=== PATIENT | female | born 2000 | race American Indian/Alaskan Native ===

== ENCOUNTER 2020-04-14 00:46 | Emergency (ER) | payer SELFPAY ==
[2020-04-14 01:36] VITALS: BP 112/64
--- NOTE | 2020-04-14 04:19 | Emergency Department Report ---
ED ENT HPI - General Chief complaint: Sore Throat Stated complaint: SORE THORAT Time Seen by Provider: 04/14/20 04:00 Source: patient Mode of arrival: Ambulatory Limitations: No Limitations - History of Present Illness Initial comments: Patient is a 19-year-old female presents emergency room complaints of a sore throat that began a couple days ago. She has associated pain with swallowing. She is able to tolerate p.o. intake. She states that she noticed some white spots on the back of her tonsils. She denies any fever, nausea, vomiting, diarrhea. She denies any sick contacts or recent travel. She denies any past medical history. No allergies to medications. Patient states that her last menstrual cycle was March 12 and that is also why she presented to the emergency room. She states that she has had some lower abdominal cramping and back pain but denies any vaginal bleeding, discharge, urinary symptoms. - Related Data Previous Rx's Medication Instructions Recorded Last Taken Type Amoxicillin [Trimox] 500 mg PO BID 10 Days #40 capsule 04/14/20 Unknown Rx Allergies Allergy/AdvReac Type Severity Reaction Status Date / Time No Known Allergies Allergy Unverified 04/14/20 01:09 ED Dental HPI - General Chief complaint: Sore Throat Stated complaint: SORE THORAT Time Seen by Provider: 04/14/20 04:00 Source: patient Mode of arrival: Ambulatory Limitations: No Limitations - Related Data Previous Rx's Medication Instructions Recorded Last Taken Type Amoxicillin [Trimox] 500 mg PO BID 10 Days #40 capsule 04/14/20 Unknown Rx Allergies Allergy/AdvReac Type Severity Reaction Status Date / Time No Known Allergies Allergy Unverified 04/14/20 01:09 ED Review of Systems ROS: Stated complaint: SORE THORAT Other details as noted in HPI Comment: All other systems reviewed and negative ED Past Medical Hx - Past Medical History Previous Medical History?: No - Surgical History Past Surgical History?: No - Social History Smoking Status: Never Smoker Substance Use Type: None - Medications Home Medications: Home Medications Medication Instructions Recorded Confirmed Last Taken Type Amoxicillin [Trimox] 500 mg PO BID 10 Days #40 capsule 04/14/20 Unknown Rx ED Physical Exam - General Limitations: No Limitations General appearance: alert, in no apparent distress - Head Head exam: Present: atraumatic, normocephalic - Eye Eye exam: Present: normal appearance - ENT ENT exam: Present: mucous membranes moist, TM's normal bilaterally, normal external ear exam, other (bilateral tonsillar exudates with mild tonsillar hypertrophy, uvula is midline, no uvular edema or deviation, no muffled voice, tolerating secretions, no tongue elevation) - Respiratory Respiratory exam: Present: normal lung sounds bilaterally. Absent: respiratory distress, wheezes, rales, rhonchi, stridor, chest wall tenderness, accessory muscle use, decreased breath sounds, prolonged expiratory - Cardiovascular Cardiovascular Exam: Present: regular rate, normal rhythm, normal heart sounds. Absent: systolic murmur, diastolic murmur, rubs, gallop - GI/Abdominal GI/Abdominal exam: Present: soft. Absent: distended, tenderness, guarding, rebound, rigid - Neurological Exam Neurological exam: Present: alert, oriented X3 - Psychiatric Psychiatric exam: Present: normal affect, normal mood - Skin Skin exam: Present: warm, dry, intact ED Course Vital Signs 04/14/20 01:09 Temperature 98.1 F Pulse Rate 78 Respiratory 18 Rate Blood Pressure 112/64 O2 Sat by Pulse 99 Oximetry ED Medical Decision Making - Lab Data Vital Signs 04/14/20 01:09 Temperature 98.1 F Pulse Rate 78 Respiratory 18 Rate Blood Pressure 112/64 O2 Sat by Pulse 99 Oximetry Lab Results 04/14/20 Range/Units 05:12 Urine Color Yellow (Yellow) Urine Turbidity Slightly-cloudy (Clear) Urine pH 6.0 (5.0-7.0) Ur Specific [place] 1.031 H (1.003-1.030) Urine Protein 30 mg/dl (Negative) mg/dL Urine Glucose (UA) Neg (Negative) mg/dL Urine Ketones Neg (Negative) mg/dL Urine Blood Neg (Negative) Urine Nitrite Neg (Negative) Ur Reducing Substances Not Reportable Urine Bilirubin Neg (Negative) Urine Ictotest Not Reportable Urine Urobilinogen 4.0 (<2.0) mg/dL Ur Leukocyte Esterase Mod (Negative) Urine WBC (Auto) 48.0 H (0.0-6.0) /HPF Urine RBC (Auto) 21.0 (0.0-6.0) /HPF U Epithel Cells (Auto) 27.0 H (0-13.0) /HPF Urine Bacteria (Auto) 1+ (Negative) /HPF Urine Mucus 3+ /HPF Urine HCG, Qual Negative (Negative) - Medical Decision Making Patient is a 19-year-old female presents emergency room complaints of a sore throat that began a couple days ago. She has associated pain with swallowing. She is able to tolerate p.o. intake. She states that she noticed some white spots on the back of her tonsils. She denies any fever, nausea, vomiting, diarrhea. She denies any sick contacts or recent travel. She denies any past medical history. No allergies to medications. Patient states that her last menstrual cycle was March 12 and that is also why she presented to the emergency room. She states that she has had some lower abdominal cramping and back pain but denies any vaginal bleeding, discharge, urinary symptoms. vitals are normal. on exam: bilateral tonsillar exudates with mild tonsillar hypertrophy, uvula is midline, no uvular edema or deviation, no muffled voice, tolerating secretions, no tongue elevation. Examination appears consistent with tonsillitis, no signs of peritonsillar abscess at this time. Urine is negative. UA shows evidence of white blood cells and leukocyte esterase, there are many epithelial cells, could be due to contamination, but given that patient is having lower abdominal cramping and back pain could be related to UTI, urine culture sent, advised patient to follow-up with PCP for repeat urinalysis. Patient given amoxicillin which will cover for tonsillitis and UTI. advised pt Please take medication as prescribed. Increase your water intake. May take Tylenol or ibuprofen as needed for pain. May use [id number] throat spray. Do warm salt water gargles 3 times a day. Throw away your toothbrush. Do not drink after others or allow others to drink after you. Follow-up with a primary care doctor for reexamination and to have your urine retested. Return to emergency room for any new or worsening symptoms. Critical care attestation.: If time is entered above; I have spent that time in minutes in the direct care of this critically ill patient, excluding procedure time. ED Disposition Clinical Impression: Tonsillitis UTI (urinary tract infection) Qualifiers: Urinary tract infection type: acute cystitis Hematuria presence: with hematuria Qualified Code(s): N30.01 - Acute cystitis with hematuria Disposition: TO HOME OR SELFCARE Is pt being admited?: No Does the pt Need Aspirin: No Condition: Stable Instructions: Urinary Tract Infection in Women (ED), Tonsillitis (ED) Additional Instructions: Please take medication as prescribed. Increase your water intake. May take Tylenol or ibuprofen as needed for pain. May use [id number] throat spray. Do warm salt water gargles 3 times a day. Throw away your toothbrush. Do not drink after others or allow others to drink after you. Follow-up with a primary care doctor for reexamination and to have your urine retested. Return to emergency room for any new or worsening symptoms. Prescriptions: Amoxicillin [Trimox] 500 mg PO BID 10 Days #40 capsule Referrals: KELECHI FONSECA MD [Staff Physician] - 2-3 Days [facility] [Provider Group] - 2-3 Days [facility] [Outside] - 2-3 Days Time of Disposition: 06:29 Print Language: TAMAZIGHT
[2020-04-14 06:07] LABS: Mucus,Urine 3+ /HPF
[2020-04-14 06:18] LABS: Bacteria,Urine 1+ /HPF (Negative); Bilirubin,Urine NEG (Negative); Blood,Urine NEG (Negative); Color,Urine Yellow (Yellow)
[2020-04-14 06:20] LABS: HCG Qualitative,Urine Negative (Negative)
== END 2020-04-14 06:40 | disposition home or self-care (01) ==
LOC: ED 00:46
DX: J03.90 Acute tonsillitis, unspecified (principal); N39.0 Urinary tract infection, site not specified; Z79.899 Other long term (current) drug therapy
CPT/HCPCS: 81001; 81025; 87086; 99283

== ENCOUNTER 2020-04-26 15:53 | Emergency (ER) | payer SELFPAY ==
[2020-04-26 17:13] LABS: Bilirubin,Urine NEG (Negative); Blood,Urine NEG (Negative); Color,Urine Yellow (Yellow); Mucus,Urine 3+ /HPF; Protein,Urine <15 mg/dL mg/dL (Negative); Urobilinogen,Urine < 2.0 mg/dL (<2.0)
[2020-04-26 17:15] LABS: HCG Qualitative,Urine Negative (Negative)
--- NOTE | 2020-04-26 18:23 | Emergency Department Report ---
ED General Adult HPI - General Chief complaint: Abdominal Pain Stated complaint: BACK, STOMACH, CHEST PAIN Time Seen by Provider: 04/26/20 17:04 Source: patient Mode of arrival: Ambulatory Limitations: No Limitations - History of Present Illness Initial comments: 19-year-old -[place] female patient presents with complaints of continued sore throat, left upper abdominal pain, body aches, and left-sided chest pain since her visit 04/14/2020. Patient states she was seen here in the ED and treated for tonsillitis with amoxicillin. Patient states she did take all 10 days worth of the Amoxil and her symptoms seem to have improved for a couple of days and then worsened. She rates her current throat pain and abdominal pain as a 8/10 in severity. She also admits to some nausea, but denies any vomiting, diarrhea, constipation, shortness of breath, leg pain/swelling, hormone use, history of DVT/PE/cancer, or cough/hemoptysis. She also reports bilateral mid back pain and side pain. Patient noted to have UTI at last visit, however she denies any urinary symptoms or vaginal discharge - Related Data Previous Rx's Medication Instructions Recorded Last Taken Type Amoxicillin [Trimox] 500 mg PO BID 10 Days #40 capsule 04/14/20 Unknown Rx Ibuprofen [Motrin 800 MG tab] 800 mg PO Q8HR PRN #21 tablet 04/26/20 Unknown Rx Sulfamethoxazole/Trimethoprim 1 each PO BID 10 Days #20 tablet 04/26/20 Unknown Rx [Bactrim DS TAB] Allergies Allergy/AdvReac Type Severity Reaction Status Date / Time No Known Allergies Allergy Unverified 04/14/20 01:09 ED Review of Systems ROS: Stated complaint: BACK, STOMACH, CHEST PAIN Other details as noted in HPI Constitutional: denies: chills, diaphoresis, fever, malaise, weakness Respiratory: denies: cough, shortness of breath Cardiovascular: chest pain Gastrointestinal: nausea. denies: abdominal pain, diarrhea, constipation Genitourinary: denies: urgency Musculoskeletal: back pain. denies: joint swelling Skin: rash. denies: change in color Neurological: denies: headache, numbness Psychiatric: denies: depression Hematological/Lymphatic: denies: swollen glands ED Past Medical Hx - Past Medical History Previous Medical History?: No - Surgical History Past Surgical History?: No - Social History Smoking Status: Never Smoker - Medications Home Medications: Home Medications Medication Instructions Recorded Confirmed Last Taken Type Amoxicillin [Trimox] 500 mg PO BID 10 Days #40 capsule 04/14/20 Unknown Rx Ibuprofen [Motrin 800 MG tab] 800 mg PO Q8HR PRN #21 tablet 04/26/20 Unknown Rx Sulfamethoxazole/Trimethoprim 1 each PO BID 10 Days #20 tablet 04/26/20 Unknown Rx [Bactrim DS TAB] ED Physical Exam - General Limitations: No Limitations General appearance: alert, in no apparent distress - Head Head exam: Present: atraumatic, normocephalic - Eye Eye exam: Present: normal appearance - ENT ENT exam: Present: mucous membranes moist - Expanded ENT Exam Expanded Mouth exam: Absent: drooling, trismus, muffled voice Throat exam: Positive: tonsillar erythema, tonsillomegaly (Moderate bilateral), tonsillar exudate (Bilateral) - Neck Neck exam: Present: full ROM, lymphadenopathy (Mild anterior cervical and submandibular). Absent: meningismus - Respiratory Respiratory exam: Present: normal lung sounds bilaterally. Absent: respiratory distress, chest wall tenderness - Cardiovascular Cardiovascular Exam: Present: regular rate, normal rhythm. Absent: systolic murmur, diastolic murmur, rubs, gallop - GI/Abdominal GI/Abdominal exam: Present: soft, tenderness (LUQ), normal bowel sounds. Absent: distended, guarding, rebound, rigid - Extremities Exam Extremities exam: Present: normal inspection, full ROM. Absent: calf tenderness (No swelling or edema noted in extremities bilaterally) - Back Exam Back exam: Present: full ROM. Absent: CVA tenderness (R), CVA tenderness (L), paraspinal tenderness, vertebral tenderness - Neurological Exam Neurological exam: Present: alert, oriented X3 - Psychiatric Psychiatric exam: Present: normal affect, normal mood - Skin Skin exam: Present: warm, dry, intact, normal color, rash (papular rash noted bilaterally to antecubital fossas without serrounding cellulitis or drainage) ED Course Vital Signs 04/26/20 16:28 Temperature 98.3 F Pulse Rate 73 Respiratory 18 Rate Blood Pressure 116/49 [Right] O2 Sat by Pulse 100 Oximetry ED Medical Decision Making - Lab Data Result diagrams: 04/26/20 18:27 04/26/20 18:27 Lab Results 04/26/20 04/26/20 04/26/20 Range/Units 16:44 18:27 18:27 WBC 4.9 (4.5-11.0) K/mm3 RBC 4.24 (3.65-5.03) M/mm3 Hgb 12.5 (10.1-14.3) gm/dl Hct 38.2 (30.3-42.9) % MCV 90 (79-97) fl MCH 30 (28-32) pg MCHC 33 (30-34) % RDW 14.5 (13.2-15.2) % Plt Count 307 (140-440) K/mm3 Lymph % (Auto) 41.9 H (13.4-35.0) % [place] % (Auto) 10.6 H (0.0-7.3) % Eos % (Auto) 8.8 H (0.0-4.3) % Baso % (Auto) 0.8 (0.0-1.8) % Lymph # 2.1 (1.2-5.4) K/mm3 [place] # 0.5 (0.0-0.8) K/mm3 Eos # 0.4 (0.0-0.4) K/mm3 Baso # 0.0 (0.0-0.1) K/mm3 Seg Neutrophils % 37.9 L (40.0-70.0) % Seg Neutrophils # 1.9 (1.8-7.7) K/mm3 Sodium 139 (137-145) mmol/L Potassium 5.8 H (3.6-5.0) mmol/L Chloride 102.1 (98-107) mmol/L Carbon Dioxide 24 (22-30) mmol/L Anion Gap 19 mmol/L BUN 11 (7-17) mg/dL Creatinine 0.6 (0.6-1.2) mg/dL Estimated GFR > 60 ml/min BUN/Creatinine Ratio 18 % Glucose 86 (65-100) mg/dL Calcium 9.5 (8.4-10.2) mg/dL Total Bilirubin 0.20 (0.1-1.2) mg/dL AST 43 H (5-40) units/L ALT 15 (7-56) units/L Alkaline Phosphatase 59 (35-129) units/L Total Protein 7.6 (6.3-8.2) g/dL Albumin 3.8 L (3.9-5) g/dL Albumin/Globulin Ratio 1.0 % Lipase 31 (13-60) units/L Urine Color Yellow (Yellow) Urine Turbidity Slightly-cloudy (Clear) Urine pH 5.0 (5.0-7.0) Ur Specific [place] 1.029 (1.003-1.030) Urine Protein <15 mg/dl (Negative) mg/dL Urine Glucose (UA) Neg (Negative) mg/dL Urine Ketones Neg (Negative) mg/dL Urine Blood Neg (Negative) Urine Nitrite Neg (Negative) Urine Bilirubin Neg (Negative) Urine Urobilinogen < 2.0 (<2.0) mg/dL Ur Leukocyte Esterase Mod (Negative) Urine WBC (Auto) 18.0 H (0.0-6.0) /HPF Urine RBC (Auto) 7.0 (0.0-6.0) /HPF U Epithel Cells (Auto) 13.0 (0-13.0) /HPF Urine Mucus 3+ /HPF Urine HCG, Qual Negative (Negative) Monoscreen (Negative) 04/26/20 Range/Units 18:27 WBC (4.5-11.0) K/mm3 RBC (3.65-5.03) M/mm3 Hgb (10.1-14.3) gm/dl Hct (30.3-42.9) % MCV (79-97) fl MCH (28-32) pg MCHC (30-34) % RDW (13.2-15.2) % Plt Count (140-440) K/mm3 Lymph % (Auto) (13.4-35.0) % [place] % (Auto) (0.0-7.3) % Eos % (Auto) (0.0-4.3) % Baso % (Auto) (0.0-1.8) % Lymph # (1.2-5.4) K/mm3 [place] # (0.0-0.8) K/mm3 Eos # (0.0-0.4) K/mm3 Baso # (0.0-0.1) K/mm3 Seg Neutrophils % (40.0-70.0) % Seg Neutrophils # (1.8-7.7) K/mm3 Sodium (137-145) mmol/L Potassium (3.6-5.0) mmol/L Chloride (98-107) mmol/L Carbon Dioxide (22-30) mmol/L Anion Gap mmol/L BUN (7-17) mg/dL Creatinine (0.6-1.2) mg/dL Estimated GFR ml/min BUN/Creatinine Ratio % Glucose (65-100) mg/dL Calcium (8.4-10.2) mg/dL Total Bilirubin (0.1-1.2) mg/dL AST (5-40) units/L ALT (7-56) units/L Alkaline Phosphatase (35-129) units/L Total Protein (6.3-8.2) g/dL Albumin (3.9-5) g/dL Albumin/Globulin Ratio % Lipase (13-60) units/L Urine Color (Yellow) Urine Turbidity (Clear) Urine pH (5.0-7.0) Ur Specific [place] (1.003-1.030) Urine Protein (Negative) mg/dL Urine Glucose (UA) (Negative) mg/dL Urine Ketones (Negative) mg/dL Urine Blood (Negative) Urine Nitrite (Negative) Urine Bilirubin (Negative) Urine Urobilinogen (<2.0) mg/dL Ur Leukocyte Esterase (Negative) Urine WBC (Auto) (0.0-6.0) /HPF Urine RBC (Auto) (0.0-6.0) /HPF U Epithel Cells (Auto) (0-13.0) /HPF Urine Mucus /HPF Urine HCG, Qual (Negative) Monoscreen Negative (Negative) - Radiology Data Radiology results: report reviewed CHEST 2 VIEWS INDICATION: left sided chest pain, recent strep, LUQ pain. COMPARISON: None. FINDINGS: Support devices: None. Heart: Within normal limits. Lungs/Pleura: No acute air space or interstitial disease. No significant pleural effusion. IMPRESSION: No acute findings. - Medical Decision Making 19-year-old -[place] female patient presents with complaints of continued sore throat, left upper abdominal pain, body aches, and left-sided chest pain since her visit 04/14/2020. Patient states she was seen here in the ED and treated for tonsillitis with amoxicillin. Patient states she did take all 10 days worth of the Amoxil and her symptoms seem to have improved for a couple of days and then worsened. She rates her current throat pain and abdominal pain as a 8/10 in severity. She also admits to some nausea, but denies any vomiting, diarrhea, constipation, shortness of breath, leg pain/swelling, hormone use, history of DVT/PE/cancer, or cough/hemoptysis. She also reports bilateral mid back pain and side pain. Patient noted to have UTI at last visit, however she denies any urinary symptoms or vaginal discharge Given rash and pharyngitis not improved with amoxil, mono test was ordered. No spenomagly was noted on exam. Monotest is negative. CBC and lipase are normal. CMP show a potassium of 5.8 -lab states sample was hemolyzed. Pt noted to have continued UTI. POssible pyleo given radiation of pain, however no CVA tender was noted on exam. Rocephin given in ED. will d/c home on Bactrim. Recommend PCP f/u 3 in days. Strict return precautions were discussed in detail with pt who verbalizes understanding. Critical care attestation.: If time is entered above; I have spent that time in minutes in the direct care of this critically ill patient, excluding procedure time. ED Disposition Clinical Impression: Acute recurrent tonsillitis Disposition: - TO HOME OR SELFCARE Is pt being admited?: No Condition: Stable Instructions: Pharyngitis (ED), Acute Pyelonephritis (ED), Urinary Tract Infection in Women (ED) Prescriptions: Sulfamethoxazole/Trimethoprim [Bactrim DS TAB] 1 each PO BID 10 Days #20 tablet Ibuprofen [Motrin 800 MG tab] 800 mg PO Q8HR PRN #21 tablet PRN Reason: pain Referrals: PRIMARY CARE, [Primary Care Provider] - 3-5 Days
--- NOTE | 2020-04-26 18:47 | XRay Report ---
CHEST 2 VIEWS INDICATION: left sided chest pain, recent strep, LUQ pain. COMPARISON: None. FINDINGS: Support devices: None. Heart: Within normal limits. Lungs/Pleura: No acute air space or interstitial disease. No significant pleural effusion. IMPRESSION: No acute findings. Signer Name: Mc Vargas MD Signed: 04/26/2020 6:42 PM Workstation Name: [id number]
[2020-04-26 18:49] LABS: Basophils % (Auto) 0.8 % (0.0-1.8); Eosinophils # (Auto) 0.4 K/mm3 (0.0-0.4); Eosinophils % (Auto) 8.8 % (0.0-4.3); Hematocrit 38.2 % (30.3-42.9); Hemoglobin 12.5 gm/dl (10.1-14.3); Lymphocytes # (Auto) 2.1 K/mm3 (1.2-5.4); Lymphocytes % (Auto) 41.9 % (13.4-35.0); Mean Corpuscular HGB Conc 33 % (30-34); Mean Corpuscular Volume 90 fl (79-97); Monocytes # (Auto) 0.5 K/mm3 (0.0-0.8); Monocytes % (Auto) 10.6 % (0.0-7.3); Platelet Count 307 K/mm3 (140-440); Red Blood Count 4.24 M/mm3 (3.65-5.03); Red Cell Distribution Width 14.5 % (13.2-15.2)
[2020-04-26 19:28] LABS: Alanine Aminotransferase 15 units/L (7-56); Albumin 3.8 g/dL (3.9-5); Blood Urea Nitrogen 11 mg/dL (7-17); Calcium 9.5 mg/dL (8.4-10.2); Hemolysis Index 441
[2020-04-26 19:51] LABS: BUN/Creatinine Ratio 18
[2020-04-26] MEDS ORDERED: cefTRIAXone/NS 1 GM/50 ML 1 GM/50 ML BAG IV ONE (20:53)
[2020-04-26 21:20] VITALS: BP 108/53
== END 2020-04-26 21:40 | disposition home or self-care (01) ==
LOC: ED 15:53
DX: J03.91 Acute recurrent tonsillitis, unspecified (principal); Z79.1 Long term (current) use of non-steroidal anti-inflammatories (NSAID); Z79.2 Long term (current) use of antibiotics; Z79.899 Other long term (current) drug therapy
CPT/HCPCS: 36415; 71046; 80053; 81001; 81025; 83690; 84132; 85025; 86308; 87086; 87116; 87430; 93005; 96365; 99283; J0696

== ENCOUNTER 2022-01-16 18:28 | Emergency (ER) | payer OTHER ==
[2022-01-16] MEDS ORDERED: ACETAMINOPHEN 500 MG TAB PO ONE (21:29)
[2022-01-16 22:00] LABS: Basophils % (Auto) 0.6 % (0.0-1.8); Eosinophils # (Auto) 0.7 K/mm3 (0.0-0.4); Eosinophils % (Auto) 8.3 % (0.0-4.3); Hematocrit 34.9 % (30.3-42.9); Hemoglobin 12.1 gm/dl (10.1-14.3); Lymphocytes % (Auto) 24.1 % (13.4-35.0); Mean Corpuscular HGB Conc 35 % (30-34); Mean Corpuscular Volume 89 fl (79-97); Monocytes # (Auto) 0.7 K/mm3 (0.0-0.8); Monocytes % (Auto) 8.9 % (0.0-7.3); Platelet Count 246 K/mm3 (140-440); Red Blood Count 3.92 M/mm3 (3.65-5.03); Red Cell Distribution Width 13.3 % (13.2-15.2)
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
[2022-01-17 01:20] VITALS: BP 123/60
== END 2022-01-17 01:21 | disposition home or self-care (01) ==
LOC: ED 18:28
DX: O26.892 Other specified pregnancy related conditions, second trimester (principal); R10.9 Unspecified abdominal pain; Z3A.16 16 weeks gestation of pregnancy; V89.2XXA Person injured in unspecified motor-vehicle accident, traffic, initial encounter; Y93.89 Activity, other specified; Y92.89 Other specified places as the place of occurrence of the external cause; Y99.8 Other external cause status
CPT/HCPCS: 36415; 76801; 84702; 85025; 99284